=== PATIENT | male | born 1970 | race Caucasian/White ===

== ENCOUNTER 2019-07-11 17:54 | Inpatient (IN) | payer MEDICAID ==
[~2019-07-11] VITALS: Ht 172.7 cm; Wt 68.0 kg
[2019-07-11 17:58] VITALS: BP_SYST 131
[2019-07-11] MEDS ORDERED: NACL 0.9% 1,000 ML IV ONE ×2 (18:52→19:30)
[2019-07-11] MEDS ORDERED: MORPHINE 4 MG/ML INJ. SYRINGE IVP ONE (19:00)
[2019-07-11] MEDS ORDERED: ONDANSETRON HCL 4 MG/2 ML VIAL IVP ONE (19:00)
[2019-07-11 19:10] LABS: BASOPHILS % (AUTO) 0.4 % (0.0-2.0); EOSINOPHILS # (AUTO) 0.1 K/uL (0.0-0.4); EOSINOPHILS % (AUTO) 0.6 % (0.0-4.0); HEMATOCRIT 42.1 % (36-54); HEMOGLOBIN 14.6 g/dL (14.0-18.0); LYMPHOCYTES # (AUTO) 1.4 K/uL (1.0-5.5); MEAN CORPUSCULAR HEMOGLOBIN 31 pg (27-31); MEAN CORPUSCULAR HGB CONC 35 % (32-36); MEAN CORPUSCULAR VOLUME 89 fL (79.0-98.0); MONOCYTES # (AUTO) 0.6 K/uL (0.0-1.0); NEUTROPHILS # (AUTO) 8.5 K/uL (1.8-7.7); PLATELET COUNT (AUTO) 147 K/uL (130-430); RED BLOOD CELL COUNT(AUTO) 4.72 MIL/uL (4.2-6.2); RED CELL DISTRIBUTION WIDTH 13.1 % (9.0-15.0); WHITE BLOOD COUNT (AUTO) 10.7 K/uL (4.8-10.8)
[2019-07-11 19:22] LABS: CALCIUM 8.2 mg/dL (8.4-11.0); CREATININE 0.91 mg/dL (0.55-1.30); POTASSIUM 3.6 mmol/L (3.5-5.1)
[2019-07-11 19:28] LABS: ALBUMIN 3.4 g/dL (3.4-4.8); TOTAL BILIRUBIN 0.5 mg/dL (0.0-1.0)
[2019-07-11] MEDS ORDERED: PIPERACILLIN/TAZO 3.375 GM in NS 50 ML IV ONE (19:45)
[2019-07-11] MEDS ORDERED: PIPERACILLIN/TAZOBACTAM 3.375 GM/VIAL (ZOSYN) IV ONE (20:03)
[2019-07-11] MEDS ORDERED: IOHEXOL 100 ML IV ONE (20:18)
[2019-07-11] MEDS ORDERED: ONDANSETRON HCL 4 MG/2 ML VIAL IVP PRN ×2 (21:30→21:45)
[2019-07-11] MEDS ORDERED: ACETAMINOPHEN/CODEINE 300 MG-30 MG TABLET PO PRN (21:30)
[2019-07-11] MEDS ORDERED: fentaNYL CITRATE/PF 100 MCG/2 ML AMP IVP PRN ×2 (21:45)
[2019-07-11] MEDS ORDERED: KETOROLAC TROMETHAMINE 30 MG VIAL IVP PRN (21:45)
[2019-07-11] MEDS ORDERED: LR 1,000 ML IV.SOLN IV ONE (22:35)
[2019-07-11] MEDS ORDERED: NS IRRIG SOLN 1000 ML IR ONE (22:35)
[2019-07-11] MEDS ORDERED: LIDOCAINE 1% 10 MG/ML, 20 ML MDV ONE (22:35)
[2019-07-11] MEDS ORDERED: BUPIVACAINE /PF 0.75% 10 ML VIAL INJ ONE (22:35)
[2019-07-11 23:13] VITALS: BP_SYST 98
[2019-07-12] VITALS: BP_SYST 99
[2019-07-12] MEDS: MORPHINE 4 MG/ML INJ. SYRINGE IVP PRN ×2 (01:49→06:25)
[2019-07-12 02:00] VITALS: BP_SYST 128
[2019-07-12 02:53] VITALS: BP_SYST 128
[2019-07-12 08:07] VITALS: BP_SYST 121
[2019-07-12 09:40] VITALS: BP_SYST 132
[2019-07-12 11:19] VITALS: BP_SYST 132
== END 2019-07-12 15:00 | disposition home or self-care (01) | DRG 228 ==
LOC: SED 17:54 → SDS 21:16 → SMU 21:21 → SDS 21:23 → SMU 21:25
PROVIDERS: ADMIT Surgery; ATTEND Surgery
PROC: 0YQ60ZZ Repair Left Inguinal Region, Open Approach (ICD-10-PCS; principal; 2019-07-11 21:00)
DX: K40.90 Unilateral inguinal hernia, without obstruction or gangrene, not specified as recurrent (principal); E66.9 Obesity, unspecified; I25.10 Atherosclerotic heart disease of native coronary artery without angina pectoris; Z95.5 Presence of coronary angioplasty implant and graft; Z68.22 Body mass index [BMI] 22.0-22.9, adult; Z79.899 Other long term (current) drug therapy
CPT/HCPCS: 36415; 80053; 83605; 83690-TC; 85025; 86886; 86900; 86901; 87081; 96361; 96374; 96375; 99285; C1781; J2001; J2270; J2405; J2543; J3490; J7120; Q9967